=== PATIENT | male | born 1980 | race Caucasian/White ===

== ENCOUNTER → 2021-05-22 18:57 | Outpatient (CLI) | payer OTHER, SELFPAY ==
--- NOTE | 2021-05-22 | DI.MRI.S_ITS ---
PROCEDURE: MR KNEE RT WO CON INDICATIONS: INJURY RIGHT KNEE TECHNIQUE: Noncontrast sagittal PD fast spin echo and T2 fast spin echo with fat saturation, sagittal 3-D FLASH with fat saturation; coronal T1 spin echo and PD fast spin echo with fat saturation, and axial PD fast spin echo with fat saturation through the knee. COMPARISON: [facility] [place] Dixon, CR, XR KNEE 4+ VIEWS RIGHT, 05/19/2021, 14:24. FINDINGS: Image quality: Excellent. Menisci: The medial and lateral menisci demonstrate normal morphology and internal signal. The meniscal root ligaments appear intact. Cruciate ligaments: The anterior and posterior cruciate ligaments appear intact. Medial structures: The medial collateral ligament appears intact. The posterior oblique ligament, semimembranosus tendon insertions, oblique popliteal ligament, and meniscocapsular junction appear intact. Visualized portions of the pes anserinus tendons appear normal. No abnormal bursal fluid. Lateral structures: The lateral collateral ligament, long and short heads of the biceps femoris tendon appear intact. The popliteus tendon appears normal; the popliteofibular ligament appears intact. The posterosuperior and anteroinferior popliteomeniscal fascicles appear intact. The arcuate and fabellofibular ligaments appear intact, on either side of the lateral inferior geniculate artery. Iliotibial band appears normal. Anterior structures: The quadriceps and patellar tendons appear intact. Patellar alignment is normal. No femoral trochlear dysplasia or ventral trochlear prominence. No edema in the infrapatellar fat pad. Bones and cartilage: Extensive marrow edema involving lateral portion of proximal tibia extending to lateral tibial plateau is seen with linear area of T2 hyperintense signal concerning for nondisplaced fracture in this area. No other area of abnormal marrow signal. The cartilage of the medial and lateral femorotibial compartments, as well as the patellofemoral compartment, appears normal in thickness. Joint space: There is moderate amount of joint fluid, no gross loose bodies. No Darby's cyst. Normal appearing synovial plicae are incidentally noted. IMPRESSION: 1. Finding is consistent with a nondisplaced fracture involving lateral portion of proximal tibia extending to lateral tibial plateau. No other fracture or dislocation is seen. Articulating cartilages are intact. Moderate joint effusion, no gross loose bodies. 2. Sprain/low-grade intrasubstance partial-thickness tear involving distal anterior cruciate ligament. No full-thickness ACL rupture. PCL is intact. 3. No evidence of focal meniscal tear. Dictated by: Thang Phillip M.D. on 05/23/2021 at 8:45 Approved by: Thang Phillip M.D. on 05/23/2021 at 8:48
== END ==
PROVIDERS: Referring Provider Orthopaedic Surgery Foot and Ankle Surgery; Visit Provider Orthopaedic Surgery Foot and Ankle Surgery
DX: S83.511A Sprain of anterior cruciate ligament of right knee, initial encounter (principal); S89.91XA Unspecified injury of right lower leg, initial encounter; M25.461 Effusion, right knee; X58.XXXA Exposure to other specified factors, initial encounter
CPT/HCPCS: 73721